=== PATIENT | male | born 1945 | race Caucasian/White ===

== ENCOUNTER → 2025-07-26 | Outpatient (REF) | payer OTHER | LOC: M SMT 15:35 | PROVIDERS: ATTEND Physician Assistant | DX: N28.89 Other specified disorders of kidney and ureter (principal) ==

== ENCOUNTER 2025-08-23 07:21 | Day surgery (SDC) | payer OTHER ==
[~2025-08-23] VITALS: Ht 162.6 cm; Wt 55.5 kg
[~2025-08-23 07:21] MED LIST: AMLO1TAB25 PO; CABE0.5T PO; HYDR-4468 PO; LEVO175T2 PO; LIDOCAINE 2% 100 MG/5 ML SDV (FOR ANES.) As Ordered ONE; MAGN400T2 PO; ONDANSETRON 4MG 2ML VIAL As Ordered ONE; PANT40TA29 PO; TEST200I14 SC; dexAMETHasone 4 MG/ML 1 ML VIAL As Ordered ONE
[2025-08-23] MEDS: ceFAZolin SOD 2 GM IV ONCE IV ONE (09:12)
[2025-08-23] MEDS ORDERED: ACETAMINOPHEN 1000MG/100ML IV BAG As Ordered ONE (09:15)
[2025-08-23] MEDS: ISOVUE-300 61% 100 ML VIAL As Ordered ONE (09:54)
[2025-08-23] MEDS ORDERED: MORPHINE 4 MG/ML 1 ML VIAL IV PRN (10:00)
[2025-08-23] MEDS ORDERED: HYDROMORPHONE HCL 0.5 MG/0.5 ML SYRINGE IV PRN (10:00)
[2025-08-23 10:45] VITALS: BP 152/78; TEMP 97.1; O2SAT 97
== END 2025-08-23 11:23 | disposition home or self-care (01) ==
LOC: M SDC 07:21
PROVIDERS: ATTEND Urology
DX: N13.1 Hydronephrosis with ureteral stricture, not elsewhere classified (principal); I10 Essential (primary) hypertension; J44.89 Other specified chronic obstructive pulmonary disease; Z79.899 Other long term (current) drug therapy; Z79.890 Hormone replacement therapy; Z85.858 Personal history of malignant neoplasm of other endocrine glands; Z92.3 Personal history of irradiation; Z87.891 Personal history of nicotine dependence
CPT/HCPCS: 52332; 52344; 74420; C1769; C1894; C2617; J0131; J0688; J1100; J2405; J3010; Q9967